=== PATIENT | male | born 1965 | race Caucasian/White ===

== ENCOUNTER 2017-01-31 12:04 | Emergency (ER) | payer OTHER ==
[2017-01-31 13:01] LABS: BASOPHIL % 0.4 % (0-2); PLATELET COUNT 184 x10^3mcL (130-400); RED CELL DISTRIBUTION WIDTH 13.9 % (11.5-14.5)
[2017-01-31 13:21] LABS: CALCIUM 8.6 mg/dL (8.5-10.1); CARBON DIOXIDE 24.5 mmol/L (21-32); CHLORIDE SERUM 106 mmol/L (98-107); CREATININE SERUM 0.8 mg/dL (0.7-1.3); GFR1 > 60 mL/min; GLUCOSE SERUM 112 mg/dL (74-106); POTASSIUM SERUM 3.9 mmol/L (3.5-5.1); SODIUM SERUM 140 mmol/L (136-145)
[2017-01-31 13:25] LABS: ALBUMIN 3.7 g/dL (3.4-5.0); ALKALINE PHOSPHATASE 72 U/L (46-116); ALT/SGPT 32 U/L (16-63); AST/SGOT 23 U/L (15-37); BILIRUBIN TOTAL 0.93 mg/dL (0.20-1.00); TOTAL PROTEIN, SERUM 7.5 g/dL (6.4-8.2)
[2017-01-31 14:39] VITALS: BP 123/79
== END 2017-01-31 14:41 | disposition short-term general hospital (02) ==
LOC: ED 12:04
PROVIDERS: Emergency Medicine
DX: S62.632A Displaced fracture of distal phalanx of right middle finger, initial encounter for closed fracture (principal); S62.634A Displaced fracture of distal phalanx of right ring finger, initial encounter for closed fracture; S62.91XA Unspecified fracture of right hand, initial encounter for closed fracture; S61.412A Laceration without foreign body of left hand, initial encounter; I10 Essential (primary) hypertension; X58.XXXA Exposure to other specified factors, initial encounter; Y93.89 Activity, other specified; Y92.89 Other specified places as the place of occurrence of the external cause; Y99.8 Other external cause status
CPT/HCPCS: 90715; A4570; J0690; J3010; J7030; Q0092

== ENCOUNTER 2020-01-14 11:02 | Emergency (ER) | payer MEDICAID ==
[~2020-01-14] VITALS: Ht 160 cm; Wt 74.8 kg
[2020-01-14 11:10] VITALS: Ht 160 cm; Wt 74.8 kg
[2020-01-14] MEDS ORDERED: TOPROL XL25 MG PO (11:28)
[2020-01-14] MEDS ORDERED: ASPIRIN CHILDRE81 MG PO (11:29)
[2020-01-14 12:02] LABS: BASOPHIL % 0.3 % (0-2); PLATELET COUNT 231 x10^3mcL (130-400); RED CELL DISTRIBUTION WIDTH 13.9 % (11.5-14.5)
[2020-01-14 12:12] LABS: CALCIUM 7.8 mg/dL (8.5-10.1); CARBON DIOXIDE 24.8 mmol/L (21-32); CHLORIDE SERUM 106 mmol/L (98-107); CREATININE SERUM 1.3 mg/dL (0.7-1.3); GFR1 > 60 mL/min; GLUCOSE SERUM 93 mg/dL (74-106); POTASSIUM SERUM 4.7 mmol/L (3.5-5.1); SODIUM SERUM 137 mmol/L (136-145)
[2020-01-14 12:17] LABS: ALKALINE PHOSPHATASE 67 U/L (46-116); ALT/SGPT 14 U/L (16-63); AST/SGOT 29 U/L (15-37); BILIRUBIN TOTAL 0.5 mg/dL (0.20-1.00); TOTAL PROTEIN, SERUM 6.3 g/dL (6.4-8.2)
[2020-01-14 12:23] LABS: ALBUMIN 0.9 g/dL (3.4-5.0)
[2020-01-14 12:29] LABS: CK-MB < 0.5 ng/mL (0-3.6); CREATINE KINASE 57 U/L (39-308)
[2020-01-14 12:47] VITALS: BP 155/95
[2020-01-14 13:50] LABS: AMPHETAMINE QUAL UR NONE DETECTED (See below)
== END 2020-01-14 13:15 | disposition home or self-care (01) ==
LOC: ED 11:02
PROVIDERS: Emergency Medicine
DX: J40 Bronchitis, not specified as acute or chronic (principal); M54.9 Dorsalgia, unspecified; I10 Essential (primary) hypertension
CPT/HCPCS: 83880; J1885; Q0092